=== PATIENT | male | born 1960 | race Caucasian/White ===

== ENCOUNTER 2016-09-05 18:42 | Emergency (ER) | payer OTHER ==
[~2016-09-05] VITALS: Ht 172.7 cm; Wt 79.4 kg
[2016-09-05 21:53] VITALS: BP 142/102
== END 2016-09-05 21:54 | disposition home or self-care (01) ==
LOC: ER 18:42
DX: S61.211A Laceration without foreign body of left index finger without damage to nail, initial encounter (principal); Z86.73 Personal history of transient ischemic attack (TIA), and cerebral infarction without residual deficits; W29.3XXA Contact with powered garden and outdoor hand tools and machinery, initial encounter; Y93.89 Activity, other specified; Y92.89 Other specified places as the place of occurrence of the external cause; Y99.8 Other external cause status

== ENCOUNTER 2016-09-14 09:00 | Emergency (ER) | payer OTHER ==
[~2016-09-14] VITALS: Ht 172.7 cm; Wt 79.4 kg
[2016-09-14 09:03] VITALS: BP 131/95
[2016-09-14] MEDS ORDERED: KEFLEX500 MG PO (09:18)
== END 2016-09-14 09:18 | disposition home or self-care (01) ==
LOC: ER 09:00
DX: S61.211D Laceration without foreign body of left index finger without damage to nail, subsequent encounter (principal); F10.99 Alcohol use, unspecified with unspecified alcohol-induced disorder; Z86.73 Personal history of transient ischemic attack (TIA), and cerebral infarction without residual deficits; X58.XXXD Exposure to other specified factors, subsequent encounter; Y92.89 Other specified places as the place of occurrence of the external cause; Y99.8 Other external cause status